=== PATIENT | male | born 1970 | race African-American/Black ===

== ENCOUNTER 2019-03-05 08:05 | Inpatient (IN) | payer SELFPAY ==
[~2019-03-05] VITALS: Ht 172.7 cm; Wt 79.8 kg
[2019-03-05] MEDS ORDERED: FOLIC ACID 1 MG, THIAMINE HCL 100 MG, MVI, ADULT NO.1 10 ML in DEXTROSE 5% WATER 1,000 ML IV ONE ×4 (08:45)
[2019-03-05 08:50] LABS: CHLORIDE 98 mEq/L (98-107)
[2019-03-05 08:54] LABS: BASOPHILS % 0.3 % (0.0-2.0); EOSINOPHILS % 0.1 % (0.0-5.0); ETHANOL BLOOD < 10 mg/dL; HEMATOCRIT. 41.6 % (42.0-52.0); HEMOGLOBIN. 14.2 g/dL (14.0-18.0); LYMPHOCYTES % 16.5 % (20.0-50.0); MEAN CORPUSCULAR HEMOGLOBIN 32.2 pg (28.0-32.0); MEAN CORPUSCULAR VOLUME 94.3 fL (80.0-94.0); MONOCYTES % 7.3 % (2.0-8.0); NEUTROPHILS % 75.8 % (40.0-76.0); RED BLOOD CELL COUNT 4.42 mill/uL (4.7-6.1); RED CELL DISTRIBUTION WIDTH 14.7 % (11.6-14.6)
[2019-03-05] MEDS ORDERED: DEXTROSE 50% WATER 50ML SYRINGE IV ONE ×5 (08:57→12:45)
[2019-03-05] MEDS ORDERED: DEXT 10% WATER 1,000 ML IV SCH (09:00)
[2019-03-05 09:21] LABS: PLATELET ESTIMATE NORMAL
[2019-03-05 09:22] LABS: MEAN PLATELET VOLUME 9.4 fl (7.4-10.4); PLATELET 166 x1000/uL (130-400)
[2019-03-05] MEDS ORDERED: PIPERACILLIN/TAZ 3.375G PREMIX 50 ML IV ONE (10:00)
[2019-03-05 11:40] LABS: CLARITY URINE CLEAR (CLEAR); COLOR URINE YELLOW (YELLOW); KETONES URINE NEGATIVE (NEGATIVE); LEUKOCYTE ESTERASE URINE NEGATIVE (NEGATIVE); NITRITE URINE NEGATIVE (NEGATIVE); OCCULT BLOOD URINE TRACE (NEGATIVE); PROTEIN URINE NEGATIVE (NEGATIVE); SPECIFIC GRAVITY URINE 1.008 (1.005-1.030); UROBILINOGEN URINE 0.2 E.U./dL (0.2-1.0)
[2019-03-05 12:30] LABS: *BARBITURATES SCREEN URINE NEGATIVE (NEGATIVE); *BENZODIAZEPINES SCREEN URINE NEGATIVE (NEGATIVE); *COCAINE SCREEN URINE NEGATIVE (NEGATIVE); METHADONE URINE SCREEN NEGATIVE (NEGATIVE)
[2019-03-05 12:31] LABS: *AMPHETAMINES SCREEN URINE NEGATIVE (NEGATIVE)
[2019-03-05 12:32] LABS: CANNABINOID URINE SCREEN PRESUMTIVE POSITIVE (NEGATIVE); PHENCYCLIDINE URINE SCREEN PRESUMTIVE POSITIVE (NEGATIVE)
[2019-03-05 12:34] LABS: OPIATES URINE SCREEN NEGATIVE (NEGATIVE)
[2019-03-05 15:59] VITALS: BP 127/88
[2019-03-05] MEDS ORDERED: DOCUSATE SODIUM 100MG CAPSULE PO PRN (16:00)
[2019-03-05] MEDS ORDERED: MAGNESIUM/ALUMINUM HYDROXIDE/SIMETHICONE 30ML UDC PO PRN (16:00)
[2019-03-05] MEDS ORDERED: DEXTROSE 50% WATER 50ML SYRINGE IV PRN ×2 (16:00)
[2019-03-05] MEDS ORDERED: IPRATROPIUM/ALBUTEROL 0.5-3(2.5)MG/3ML NEB NEB PRN (16:00)
[2019-03-05] MEDS ORDERED: DIPHENHYDRAMINE 50MG/ML VIAL IV PRN (16:00)
[2019-03-05] MEDS ORDERED: CLONIDINE 0.1MG TABLET PO PRN (16:00)
[2019-03-05] MEDS ORDERED: ACETAMINOPHEN 325MG TABLET PO PRN (16:00)
[2019-03-05] MEDS ORDERED: HYDROCODONE/ACETAMINOPHEN 5/325MG TABLET PO PRN (16:34)
[2019-03-05] MEDS: BLOOD SUGAR DIAGNOSTIC STRIP TEST SCH ×2 (17:40→21:04)
[2019-03-05] MEDS ORDERED: MVI, ADULT NO.1 10 ML, FOLIC ACID 1 MG, THIAMINE HCL 100 MG in SODIUM CHLORIDE 0.9% 1,0... IV NR ×4 (18:00)
[2019-03-05] MEDS: INSULIN LISPRO 100 UNITS/ML SUBCUT SCH ×2 (18:10→21:00)
[2019-03-05 20:30] VITALS: BP 120/76
[2019-03-05] MEDS: ENOXAPARIN 40MG/0.4ML SYR SUBCUT SCH (21:08)
[2019-03-05 21:16] LABS: *AMPHETAMINES SCREEN URINE NEGATIVE (NEGATIVE); *BENZODIAZEPINES SCREEN URINE NEGATIVE (NEGATIVE); *COCAINE SCREEN URINE NEGATIVE (NEGATIVE); METHADONE URINE SCREEN NEGATIVE (NEGATIVE); OPIATES URINE SCREEN NEGATIVE (NEGATIVE)
[2019-03-05 21:17] LABS: CANNABINOID URINE SCREEN PRESUMTIVE POSITIVE (NEGATIVE)
[2019-03-05] MEDS ORDERED: DILTIAZEM HCL 5MG/ML 5ML VIAL IV ONE (22:30)
[2019-03-05 22:45] VITALS: BP 119/89
[2019-03-05] MEDS ORDERED: SODIUM CHLORIDE 0.9% 500 ML IV ONE (22:45)
[2019-03-05] MEDS: CHLORDIAZEPOXIDE 25MG CAPSULE PO SCH (23:00)
[2019-03-05] MEDS: LEVETIRACETAM 500MG TABLET PO SCH (23:29)
[2019-03-05 23:37] LABS: *BARBITURATES SCREEN URINE NEGATIVE (NEGATIVE); PHENCYCLIDINE URINE SCREEN PRESUMTIVE POSITIVE (NEGATIVE)
[2019-03-06] VITALS: BP 118/82
[2019-03-06 01:05] LABS: PHOSPHORUS 1.8 mg/dL (2.5-4.9)
[2019-03-06 04:00] VITALS: BP 122/86
[2019-03-06] MEDS ORDERED: DILTIAZEM HCL 30MG TABLET PO SCH (04:00)
[2019-03-06] MEDS: CHLORDIAZEPOXIDE 25MG CAPSULE PO SCH ×3 (06:10→21:53)
[2019-03-06 07:23] LABS: BASOPHILS % 0.4 % (0.0-2.0); EOSINOPHILS % 0.7 % (0.0-5.0); HEMATOCRIT. 36.6 % (42.0-52.0); HEMOGLOBIN. 12.3 g/dL (14.0-18.0); LYMPHOCYTES % 27.2 % (20.0-50.0); MEAN CORPUSCULAR HEMOGLOBIN 31.7 pg (28.0-32.0); MEAN CORPUSCULAR VOLUME 94.2 fL (80.0-94.0); MEAN PLATELET VOLUME 9.1 fl (7.4-10.4); MONOCYTES % 7.1 % (2.0-8.0); NEUTROPHILS % 64.6 % (40.0-76.0); PLATELET 189 x1000/uL (130-400); RED BLOOD CELL COUNT 3.88 mill/uL (4.7-6.1); RED CELL DISTRIBUTION WIDTH 14.3 % (11.6-14.6)
[2019-03-06 07:35] LABS: CHLORIDE 108 mEq/L (98-107)
[2019-03-06] MEDS: BLOOD SUGAR DIAGNOSTIC STRIP TEST SCH ×4 (07:40→21:00)
[2019-03-06 07:46] LABS: PHOSPHORUS 1.9 mg/dL (2.5-4.9)
[2019-03-06] MEDS: INSULIN LISPRO 100 UNITS/ML SUBCUT SCH ×4 (08:10→21:00)
[2019-03-06 08:20] VITALS: BP 123/91
[2019-03-06] MEDS: LORAZEPAM 2MG/ML CPJ IV PRN (09:49)
[2019-03-06] MEDS: OMEPRAZOLE 20MG CAPSULE EXTENDED RELEASE PO SCH (09:49)
[2019-03-06] MEDS: LEVETIRACETAM 500MG TABLET PO SCH ×2 (09:49→20:43)
[2019-03-06 11:39] VITALS: BP 132/90
[2019-03-06] MEDS: ASPIRIN 81MG EC TABLET PO SCH (13:34)
[2019-03-06] MEDS: DILTIAZEM HCL 30MG TABLET PO SCH ×2 (13:35→21:53)
[2019-03-06] MEDS ORDERED: FOLIC ACID 1 MG, THIAMINE HCL 100 MG, MVI, ADULT NO.1 10 ML in DEXTROSE 5% WATER 1,000 ML IV ONE ×4 (15:00)
[2019-03-06 16:39] VITALS: BP 107/73
[2019-03-06 20:00] VITALS: BP 118/91
[2019-03-06] MEDS: ENOXAPARIN 40MG/0.4ML SYR SUBCUT SCH (20:44)
[2019-03-07] VITALS: BP 121/64
[2019-03-07 04:00] VITALS: BP 130/70
[2019-03-07] MEDS: LORAZEPAM 2MG/ML CPJ IV PRN ×2 (05:35→12:53)
[2019-03-07 06:50] LABS: BASOPHILS % 0.8 % (0.0-2.0); EOSINOPHILS % 2.7 % (0.0-5.0); HEMATOCRIT. 34.6 % (42.0-52.0); HEMOGLOBIN. 11.7 g/dL (14.0-18.0); LYMPHOCYTES % 39.1 % (20.0-50.0); MEAN CORPUSCULAR VOLUME 94.5 fL (80.0-94.0); MEAN PLATELET VOLUME 9.3 fl (7.4-10.4); MONOCYTES % 10.1 % (2.0-8.0); NEUTROPHILS % 47.3 % (40.0-76.0); PLATELET 174 x1000/uL (130-400); RED BLOOD CELL COUNT 3.66 mill/uL (4.7-6.1)
[2019-03-07] MEDS: CHLORDIAZEPOXIDE 25MG CAPSULE PO SCH (06:51)
[2019-03-07] MEDS: DILTIAZEM HCL 30MG TABLET PO SCH ×2 (06:51→15:29)
[2019-03-07 07:14] LABS: CHLORIDE 106 mEq/L (98-107)
[2019-03-07] MEDS: BLOOD SUGAR DIAGNOSTIC STRIP TEST SCH ×3 (07:40→17:52)
[2019-03-07 08:00] VITALS: BP 129/77
[2019-03-07] MEDS: INSULIN LISPRO 100 UNITS/ML SUBCUT SCH ×3 (08:10→17:52)
[2019-03-07] MEDS: LEVETIRACETAM 500MG TABLET PO SCH (09:22)
[2019-03-07] MEDS: OMEPRAZOLE 20MG CAPSULE EXTENDED RELEASE PO SCH (09:22)
[2019-03-07] MEDS: ASPIRIN 81MG EC TABLET PO SCH (09:22)
[2019-03-07 12:00] VITALS: BP 131/81
[2019-03-07] MEDS ORDERED: ASPI-1158 PO (14:42)
[2019-03-07] MEDS ORDERED: KEPP500 PO (14:42)
[2019-03-07] MEDS ORDERED: DILT30TA38 PO (14:42)
[2019-03-07 16:00] VITALS: BP 134/92
[2019-03-07 17:00] VITALS: BP 137/87
[2019-03-07] MEDS ORDERED: FAMOTIDINE 20MG TABLET PO SCH (21:00)
== END 2019-03-07 19:07 | disposition home or self-care (01) | DRG 424 ==
LOC: ER 08:05 → 7WST 10:37 → EDBEDREQ 10:44 → EDBEDREQTM 10:44 → ENRESERV 14:01
PROVIDERS: ADMIT Family Medicine Adult Medicine; ATTEND Family Medicine Adult Medicine
DX: E16.2 Hypoglycemia, unspecified (principal); G93.40 Encephalopathy, unspecified; E87.2 Acidosis; I48.91 Unspecified atrial fibrillation; E87.1 Hypo-osmolality and hyponatremia; G40.909 Epilepsy, unspecified, not intractable, without status epilepticus; F17.210 Nicotine dependence, cigarettes, uncomplicated; F10.229 Alcohol dependence with intoxication, unspecified; F19.10 Other psychoactive substance abuse, uncomplicated; R74.0 Nonspecific elevation of levels of transaminase and lactic acid dehydrogenase [LDH]; Z59.0 Homelessness; Z79.899 Other long term (current) drug therapy; Z79.82 Long term (current) use of aspirin
CPT/HCPCS: 36415; 80048; 80305; 80307; 80320; 80329; 81003; 82962; 83036; 83605; 83735; 84100; 84443; 93005; 93306; 93970; 99285; C1893; J1200; J1650; J1815; J2060; J2543; J3411; J3490; J7030; J7040; J7070; G0480